=== PATIENT | female | born 1985 | race Caucasian/White ===

== ENCOUNTER 2016-10-01 12:16 | Observation (INO) | payer MEDICAID ==
[~2016-10-01] VITALS: Ht 149.9 cm; Wt 60.8 kg
[~2016-10-01 12:16] MED LIST: DICL75 PO
--- NOTE | 2016-10-01 13:45 | PD ---
HPI Chief Complaint Possible demise Date Seen: October 01, 2016 Time Seen: 13:00 (Wayne Zamudio MD R1) Travel History International Travel<30 Days: No Contact w/Intl Traveler<30Days: No Known Affected Area: No (Wayne Zamudio MD R1) History of Present Illness HPI Patient is a 31-year-old at 20 weeks and 1 day who presents with possible demise. Patient's estimated date of delivery is 02/17/17 based on first trimester ultrasound. Patient reports that she went to her 17 week appointment with Nina Deutsch and was told that everything was fine. Patient reports that she was in her normal state of health until last , which is the last day she felt movement. On that day, she felt like the contents of her abdomen shifted, felt like she was going to have a bowel movement, then felt stabbing pain in her cervix that lasted about 3 minutes. She went to 3-D ultrasound on 09/28, which was last Saturday, where they informed her that there was no heart rate or movement on ultrasound. She then called Nina Deutsch, who instructed her to go to the hospital. She then presented to [facility], where they noted the same lack of heart rate in movement on ultrasound. They referred her to an OB as an outpatient. When she finally was able to get in touch with an outpatient OB, they told her that they couldn't see her. Today, Nina Deutsch instructed her to present here to the [facility]. Patient denies any vaginal bleeding, leakage of fluid, contractions. She does endorse edema 2 days ago, feeling warm, chills, dizziness , increased feeling of pressure with urination. She has not taken her temperature. She denied any headache, vision changes, chest pain, shortness of breath, unusual abdominal pain. Para: 3 : 4 (Wayne Zamudio MD R1) History Past Medical History Narrative Medical Patient reports having osteogenesis imperfecta. She reports that she had her first fracture at 14 years old. Her daughter starting getting fractures at 2-3 years old. By working up the daughter, they discovered her osteogenesis imperfecta based on genetic testing. (Wayne Zamudio MD R1) Obstetric History Obstetric History Patient reports that her first was an uncomplicated full-term vaginal delivery. Her second delivery she had another full-term vaginal delivery, but had some anemia after delivery. For her youngest, she was induced a few weeks early around 37 weeks for cord around neck. (Wayne Zamudio MD R1) Past Surgical History Narrative Surgical Patient reports that she has had a few orthopedic closed reductions under anesthesia. Surgical History: No Previous Surgery (Wayne Zamudio MD R1) Family History Narrative Family History Patient reports that her mom has mental health problems and epilepsy. Dad is healthy. (Wayne Zamudio MD R1) Social History Alcohol Use: Yes (patient reports smoking 6-10 cigarettes per day.) Tobacco Use: No Substance Abuse: No (Wayne Zamudio MD R1) Allergies-Medications (Allergen,Severity, Reaction): Coded Allergies: Ceftriaxone (Verified Allergy, Intermediate, Confusion, 10/01/16) PATIENT STATES SHE FELT THAT SHE WAS HAVING A PANIC ATTACK Penicillin (Verified Allergy, Intermediate, Irritability/Anxiety, 10/01/16) reported AMS Home Meds Discontinued Scripts Diclofenac Sod (Diclofenac Sodium Dr)75 Mg Tab75 Mg PO BID PRN (PAIN SCALE 6 TO 10) #14 TAB Prov:Roque Martinez MD 02/22/13 Review of Systems General / Constitutional: Fever (possible, not measured, but patient felt warm) , Chills (all the time per patient) Eyes: No: Blurred Vision, Visual changes HENT: No: Headaches Cardiovascular: No: Chest Pain or Discomfort, Edema Respiratory: No: Short of Breath Gastrointestinal: No: Nausea, Vomiting, Diarrhea, Abdominal Pain Genitourinary: No: Dysuria Musculoskeletal: No: Edema Skin: No Rash (Wayne Zamudio MD R1) Physical Exam Afebrile vital signs stable and within normal limits. Narrative GENERAL: Well-nourished, well-developed patient. SKIN: Warm and dry. HEAD: Normocephalic and atraumatic. EYES: No scleral icterus. No injection or drainage. ENT: No nasal drainage noted. Mucous membranes pink. Airway patent. NECK: Supple, trachea midline. No JVD. CARDIOVASCULAR: Regular rate and rhythm without murmurs, gallops, or rubs. RESPIRATORY: Breath sounds equal bilaterally. No accessory muscle use. BREASTS: Bilateral exam showed no masses , no retractions, no nipple discharge. ABDOMEN/GI: Abdomen soft, non-tender, bowel sounds present, no rebound, no guarding Gravid to 20 weeks size FHT's: Unable to obtain EXTREMITIES: No cyanosis or edema. BACK: Nontender without obvious deformity. No CVA tenderness. NEUROLOGICAL: Awake and alert. Motor and sensory grossly within normal limits. Five out of 5 muscle strength in all muscle groups. Normal speech. (Wayne Zamudio MD R1) Data Data Vital Signs Reviewed: Yes Orders Rubella Immune Status (10/01/16 13:22) Hepatitis Profile (10/01/16 13:) Rapid Plasma Regin (Rpr) W Ttr (10/01/16 13:) Type And Screen (10/01/16 13:22) Complete Blood Count With Diff (10/01/16 13:) No Care Spec Serology (10/01/16:) Us Ob Pelvis >14 Wks Fetus (10/01/16 ) Abo/Rh Blood Type (10/01/16 13:27) Urinalysis - C+S If Indicated (10/01/16 13:) Ob/Psych Drug Screen, Urine (10/01/16 13:27) (Wayne Zamudio MD R1) MDM Plan Patient is a 31-year-old at 20 weeks and 1 day who presents with possible demise based on her last two ultrasound exams. 1. Possible demise Given her lack of records, will need to repeat basic labs looking for possible etiology of demise and will need to repeat OB ultrasound to confirm demise ABO/Rh blood type, UA, OB/psych drug screen, rubella status, hepatitis profile , RPR, type and screen, CBC, special serology OB ultrasound If there is a demise and retained products of conception, will admit and induce either with Cytotec or misoprostol or dilatation and evacuation /extraction Patient seen and examined with Dr. Telly Billingsley. Discussed with Dr. Todd. ( Wayne Zamudio MD R1) Collaborating MD Comments Patient with demise at 20 weeks gestation. Will admit for induction and cervical ripening. (Maru Todd MD) Wayne Zamudio MD R1 October 01, 2016 13:45 Maru Todd MD October 02, 2016 08:22
[2016-10-01 14:05] LABS: AUTOMATED NEUTROPHIL # 10.3 TH/MM3 (1.8-7.7); BASOPHIL # 0.1 TH/MM3 (0-0.2); BASOPHIL % 0.5 % (0.0-2.0); EOSINOPHIL # 0.1 TH/MM3 (0-0.4); EOSINOPHIL % 0.4 % (0.0-4.0); HEMATOCRIT 36.4 % (35.0-46.0); HEMO FLAGS DIFF FINAL; LYMPH % 14.8 % (9.0-44.0); MEAN CELL VOLUME 93.2 FL (80.0-100.0); MEAN CORPUSCULAR HEMOGLOBIN 30.7 PG (27.0-34.0); MEAN CORPUSCULAR HGB CONC 32.9 % (32.0-36.0); MONO % 8.2 % (0.0-8.0); NEUT % 76.1 % (16.0-70.0); PLATELET COUNT 248 TH/MM3 (150-450); RED BLOOD COUNT 3.91 MIL/MM3 (4.00-5.30); RED CELL DISTRIBUTION WIDTH 13.4 % (11.6-17.2); WHITE BLOOD COUNT 13.5 TH/MM3 (4.0-11.0)
[2016-10-01 14:14] LABS: AMPHETAMINE, URINE NEG (NEG); BARBITURATES, URINE NEG (NEG); COCAINE, URINE NEG (NEG)
[2016-10-01 14:46] LABS: RUBELLA IGG ANTIBODY 92.1 IU/mL (10.0-500.0); RUBELLA STATUS IMMUNE (IMMUNE)
[2016-10-01] MEDS ORDERED: MISOPROSTOL 200 MCG TAB VAGINAL ONE (15:00)
[2016-10-01 15:09] LABS: BACTERIA, URINE FEW /hpf; BLOOD, URINE NEG (NEG); COMMENT (UR) CULTURE INDICATED; CULTURE IF INDICATED CULTURE INDICATED; GLUCOSE,URINE NEG (NEG); KETONE, URINE NEG (NEG); MUCUS URINE FEW /lpf (OCC); NITRITE,URINE NEG (NEG); SQUAMOUS EPITHELIAL CELL URINE 14 /hpf (0-5); URINE COLOR YELLOW (YELLW/STRAW)
[2016-10-01] MEDS: LACTATED RINGER'S 1000 ML INJ 1,000 ML IV SCH (20:24)
[2016-10-01] MEDS ORDERED: ACETAMINOPHEN 325 MG TAB PO PRN (20:45)
[2016-10-01] MEDS ORDERED: ONDANSETRON HCL 4 MG/2 ML VIAL IV PUSH PRN (20:45)
[2016-10-01] MEDS ORDERED: ZOLPIDEM TARTRATE 10 MG TAB PO PRN (20:45)
[2016-10-02] MEDS ORDERED: MISOPROSTOL 200 MCG TAB VAGINAL ONE ×3 (02:00→14:00)
[2016-10-02] MEDS: LACTATED RINGER'S 1000 ML INJ 1,000 ML IV SCH ×3 (04:24→19:19)
--- NOTE | 2016-10-02 08:23 | PD.LABORPN ---
Subjective Subjective Patient is a 31-year-old at 20 weeks and 1 day who presents with demise. Dating based on first trimester US. care has been with Nina Deutsch. Pt with history of Osteogenesis imperfecta. Pt seen and examined this morning. AFVSS. Last dose of Cytotec was at 0300am. She endorses occasional lower abdominal cramping. She has no other acute concerns. complications Second trimester demise, first miscarriage Maternal history of Osteogenesis Imperfect History of post hemorrhage with prior (Jag Billingsley MD R2) Objective Objective Pt resting comfortably in bed Pelvic Exam: Cervix: Posterior Dilatation: 0 Membranes: Intact (Jag Billingsley MD R2) Assessment/Plan Assessment and Plan Patient is a 31-year-old at 20 weeks and 1 day who presents with demise. 1) Second trimester Intrauterine demise US showing gestational age of 16 weeks 3 days Pt has been given Cytotec 600mcg vaginally x2 No cervical change Will give Cytotec 800mcg vaginally now Continue to monitor for cervical change 2) Maternal History of Osteogenesis Imperfecta Normal appearance of bones on US, no evidence of fracture wdw Dr. Todd (Jag Billingsley MD R2) Collaborating MD Comments Agree with management and care (Maru Todd MD) Jag Billingsley MD R2 October 02, 2016 08:23 Maru Todd MD October 02, 2016 09:22
[2016-10-02 10:02] LABS: RAPID PLASMA REAGIN SCREEN NON-REACTIVE (NON-REACTVE)
--- NOTE | 2016-10-02 14:38 | PD.LABORPN ---
Subjective Subjective Patient is a 31-year-old at 20 weeks and 1 day who presents with demise. Dating based on first trimester US. care has been with Nina Deutsch. Pt with history of Osteogenesis imperfecta. She has no other acute concerns at this time. Patient given Cytotec intravaginally. Discussed risks and benefits. Patient consented to and tolerated insertion of medication well. (Wayne Zamudio MD R1 ) Objective Vital Signs Afebrile vital signs stable and within normal limits. Objective Pelvic Exam: Performed by Dr. Herrera Dilatation: 0cm, closed Effacement: Thick FHT's: None because status post demise (Wayne Zamudio MD R1) Assessment/Plan Problem List: (1) Second trimester (2) Osteogenesis imperfecta Assessment and Plan Patient is a 31-year-old at 20 weeks and 1 day who presents with demise. 1) Second trimester spontaneous Intrauterine demise US showing gestational age of 16 weeks 3 days Pt has been given Cytotec 600mcg vaginally x3 No cervical change Will give Cytotec 800mcg vaginally now Continue to monitor for cervical change 2) Maternal History of Osteogenesis Imperfecta Normal appearance of bones on US, no evidence of fracture sdw Dr. Herrera (Wayne Zamudio MD R1) Wayne Zamudio MD R1 October 02, 2016 14:38 Buddy Herrera MD October 02, 2016 14:50
[2016-10-02] MEDS ORDERED: MEASLES, MUMPS, RUBELLA VACCINE 0.5 ML VIAL SQ ONE (16:00)
[2016-10-02] MEDS ORDERED: DIPHTH/TETANUS/ACEL PERTUSSIS (BOOSTER) 0.5 ML VIAL/PFS IM ONE (16:00)
[2016-10-02] MEDS ORDERED: OXYTOCIN 30 UNITS-500ML PREMIX 500 ML ONE (18:20)
--- NOTE | 2016-10-02 18:29 | PD.OB.DELI ---
Delivery Date: October 02, 2016 Anesthesia: None Episiotomy: None Vaginal Delivery: Normal Nuchal Cord: None One Minute : 0 Five Minute : 0 Placenta: Spontaneous delivery, Intact Laceration: No lacerations Additional Information 20 weeks and 2 day demise. Delivered en-caule, with intact placenta. Hypercoiled cord. Buddy Herrera MD October 02, 2016 18:28
[2016-10-02] MEDS ORDERED: ACETAMINOPHEN 325 MG TAB PO PRN (18:30)
[2016-10-02] MEDS ORDERED: DOCUSATE SODIUM 50 MG/SENNA 8.6 MG TAB PO PRN (18:30)
[2016-10-02] MEDS ORDERED: IBUPROFEN 600 MG TAB PO PRN (18:30)
[2016-10-02] MEDS ORDERED: BENZOCAINE 20% TOPICAL SPRAY 60 ML CAN TOPICAL PRN (18:30)
[2016-10-02] MEDS ORDERED: ZOLPIDEM TARTRATE 5 MG TAB PO PRN (18:30)
[2016-10-02] MEDS ORDERED: ONDANSETRON ODT 4 MG TAB PO PRN (18:30)
[2016-10-02] MEDS ORDERED: oxyCODONE/ACETAMINOPHEN 5 MG/325 MG TAB PO PRN (18:30)
[2016-10-02] MEDS ORDERED: WITCH HAZEL 50%/GLYCERIN 12.5% 40 PAD JAR TOPICAL PRN (18:30)
[2016-10-02] MEDS ORDERED: ALUMINUM/MAGNESIUM/SIMETH 30 ML CUP PO PRN (18:30)
[2016-10-02 18:35] VITALS: BP 117/78; PULSE 71
[2016-10-02 18:46] VITALS: BP 114/57; PULSE 78
[2016-10-02 19:00] VITALS: BP 116/76; PULSE 66; RESP 18
[2016-10-02] MEDS ORDERED: OXYTOCIN 30 UNITS-500ML PREMIX 500 ML IV ONE (19:00)
[2016-10-02 19:15] VITALS: BP 108/72; PULSE 74
[2016-10-02 19:30] VITALS: BP 102/62; PULSE 68
[2016-10-02 19:33] VITALS: TEMP 98.2
[2016-10-02] MEDS ORDERED: SODIUM CHLORIDE 0.9% FLUSH 10 ML FLUSH IV FLUSH SCH (21:00)
[2016-10-03 00:28] VITALS: BP 89/48; PULSE 59
[2016-10-03 00:29] VITALS: RESP 18; TEMP 98.2
[2016-10-03 04:24] VITALS: TEMP 98.3
[2016-10-03] MEDS: LACTATED RINGER'S 1000 ML INJ 1,000 ML IV SCH (04:24)
[2016-10-03 06:06] VITALS: BP 84/41; PULSE 57
[2016-10-03 08:16] VITALS: BP 110/76; PULSE 76
[2016-10-03 08:17] VITALS: RESP 20; TEMP 98.8
--- NOTE | 2016-10-03 08:41 | HHI.OB ---
Subjective Post Day: 1 Remarks Patient is a 31-year-old delivered at 20 weeks and 2 days. Patient is day 1 after induction of labor for intrauterine demise and delivery of products of conception. Patient's pain is well-controlled. Patient reports eating and drinking without any nausea or vomiting. Patient reports minimal bleeding. Patient is walking without lower extremity pain or shortness of breath. Objective Vitals/I&O Vital Signs Date Time Temp Pulse Resp B/P Pulse Ox O2 Delivery O2 Flow Rate FiO2 10/03/16 08:17 98.8 20 10/03/16 08:16 76 110/76 10/03/16 06:06 57 84/41 10/03/16 04:24 98.3 10/03/16 00:29 98.2 18 10/03/16 00:28 59 89/48 10/02/16 19:33 98.2 10/02/16 19:30 68 102/62 10/02/16 19:15 74 108/72 10/02/16 19:00 66 116/76 10/02/16 19:00 18 10/02/16 18:46 78 114/57 10/02/16 18:35 71 117/78 Objective Remarks GENERAL: Well-nourished, well-developed patient. CARDIOVASCULAR: Regular rate and rhythm without murmurs, gallops, or rubs. RESPIRATORY: Breath sounds equal bilaterally. No accessory muscle use. ABDOMEN/GI: Abdomen soft, non-tender. Fundus: Firm, non-tender below umbilicus. GENITOURINARY: Light to moderate bleeding. EXTREMITIES: No cyanosis or edema, non-tender, without signs of DVT. Medications and IVs Current Medications Medications (Trade) Dose Ordered Sig/Pamella Route Start Time Stop Time Status Last Admin (Lr 1000 ml Inj) 1,000 ml @ 125 mls/hr Q8H IV 10/01/16 20:24 10/02/16 10:58 (fentaNYL INJ) 50 mcg Q1H PRN IV PUSH 10/01/16 20:30 (fentaNYL INJ) 100 mcg Q1H PRN IV PUSH 10/01/16 20:30 (NS Flush) 2 ml BID IV FLUSH 10/02/16 21:00 10/02/16 19:24 (Tylenol) 650 mg Q4H PRN PO 10/02/16 18:30 (Motrin) 600 mg Q6H PRN PO 10/02/16 18:30 (Percocet 5-325 Mg) 1 tab Q4H PRN PO 10/02/16 18:30 (Americaine 20% Top Spr) 1 spray Q4H PRN TOPICAL 10/02/16 18:30 (Tucks Pads) 1 applic QID PRN TOPICAL 10/02/16 18:30 (Sera-Colace) 2 tab Q12H PRN PO 10/02/16 18:30 (Ambien) 5 mg HS PRN PO 10/02/16 18:30 (Mag-Al Plus Susp Liq) 15 ml Q8H PRN PO 10/02/16 18:30 (Zofran Odt) 4 mg Q6H PRN PO 10/02/16 18:30 Assessment/Plan Problem List: (1) Second trimester (2) Osteogenesis imperfecta Assessment and Plan Patient is a 31-year-old at 20 weeks and 2 day who presented with demise. Patient is day 1 after induction of labor for intrauterine demise and delivery of products of conception en-caule. 1) Second trimester spontaneous Intrauterine demise Patient successfully delivered after 3 doses of Cytotec She denies any complaints. No signs or symptoms of complications. Likely discharge today 2) Maternal History of Osteogenesis Imperfecta Normal appearance of bones on US, no evidence of fracture dw Dr. Herrera Discharge Planning Likely discharge today. Wayne Zamudio MD R1 October 03, 2016 08:41
--- NOTE | 2016-10-03 08:54 | HHI.DCPOC ---
Discharge Care Plan Diagnosis: (1) IUFD at less than 20 weeks of gestation (2) Osteogenesis imperfecta (3) Second trimester Report Symptoms to Your Doctor -Temperature above 100.5 degrees -Redness, of vagina or excessive or foul smelling drainage -Unusual pain or calf pain -Increased vaginal bleeding -Painful or difficulty urinating -Feelings of extreme sadness or anxiety after 2 weeks Goals to Promote Your Health * To prevent worsening of your condition and complications, please monitor yourself for fever and report any fever to your doctor. * To maintain your health at the optimal level, please follow up with your doctor. Directions to Meet Your Goals Take your medications as prescribed Follow your dietary instruction Follow activity as directed Ensure plenty of rest for recovery Drink fluids for hydration Keep your appointments as scheduled Take your immunizations and boosters as scheduled If your symptoms worsen call your PCP, if no PCP go to Urgent Care Center or Emergency Room Smoking is Dangerous to Your Health. Avoid second hand smoke Call the 24-hour crisis hotline for domestic abuse at Wayne Zamudio MD R1 October 03, 2016 08:54
[2016-10-04 10:50] LABS: BATH SALTS (MDPV) UR NEG (NEG); ECSTASY (MDMA) UR NEG (NEG); GABAPENTIN UR NEG (NEG); HEROIN (6-ACETYLMORPHINE) UR NEG (NEG); K2 SPICE UR NEG (NEG); OBMETHADONE UR NEG (NEG); OXYCODONE (PERCODAN) NEG (NEG); PHENCYCLIDINE URINE NEG (NEG)
[2016-10-04 10:51] LABS: HYDROMORPHONE U NEG (NEG)
== END 2016-10-03 10:20 | disposition home or self-care (01) ==
LOC: HOBED 12:16 → H2EA 15:05
PROVIDERS: ADMIT Obstetrics & Gynecology Obstetrics; ATTEND Obstetrics & Gynecology Obstetrics
DX: O02.1 Missed abortion (principal); O26.892 Other specified pregnancy related conditions, second trimester; Q78.0 Osteogenesis imperfecta; Z3A.17 17 weeks gestation of pregnancy; Z88.1 Allergy status to other antibiotic agents; Z88.0 Allergy status to penicillin; O99.332 Smoking (tobacco) complicating pregnancy, second trimester; F17.210 Nicotine dependence, cigarettes, uncomplicated
CPT/HCPCS: 59855; 76805; 80074; 80307; 81001; 85025; 86592; 86703; 86762; 86850; 86900; 86901; 87086; 88300; 88305; 99285; G0378; G0481; J7120; J2590

== ENCOUNTER 2017-04-06 11:46 | Emergency (ER) | payer MEDICAID ==
[~2017-04-06] VITALS: Ht 149.9 cm; Wt 70.0 kg
[2017-04-06 11:47] VITALS: BP 126/84; PULSE 92; RESP 16; TEMP 98.3; O2SAT 100
[2017-04-06] MEDS ORDERED: SODIUM CHLOR 0.9% 1000 ML INJ 1,000 ML IV ONE (12:30)
[2017-04-06] MEDS ORDERED: SODIUM CHLORIDE 0.9% FLUSH 10 ML FLUSH IVF PRN (12:30)
[2017-04-06 13:04] LABS: AUTOMATED NEUTROPHIL # 7.7 TH/MM3 (1.8-7.7); BASOPHIL % 0.4 % (0.0-2.0); BLOOD, URINE NEG (NEG); COMMENT (UR) CULT NOT INDICATED; CULTURE IF INDICATED CULT NOT INDICATED; EOSINOPHIL # 0.1 TH/MM3 (0-0.4); EOSINOPHIL % 0.8 % (0.0-4.0); GLUCOSE,URINE NEG (NEG); HEMATOCRIT 36.3 % (35.0-46.0); HEMO FLAGS DIFF FINAL; KETONE, URINE 10 mg/dL (NEG); LYMPH % 17.1 % (9.0-44.0); LYMPHOCYTE # 1.8 TH/MM3 (1.0-4.8); MEAN CELL VOLUME 93.4 FL (80.0-100.0); MEAN CORPUSCULAR HEMOGLOBIN 31.3 PG (27.0-34.0); MEAN CORPUSCULAR HGB CONC 33.5 % (32.0-36.0); MONO % 10.8 % (0.0-8.0); MUCUS URINE FEW /lpf (OCC); NEUT % 70.9 % (16.0-70.0); NITRITE,URINE NEG (NEG); PLATELET COUNT 238 TH/MM3 (150-450); RED BLOOD COUNT 3.89 MIL/MM3 (4.00-5.30); RED CELL DISTRIBUTION WIDTH 13.2 % (11.6-17.2); SQUAMOUS EPITHELIAL CELL URINE 1 /hpf (0-5); URINE COLOR LIGHT-YELLOW (YELLW/STRAW); WHITE BLOOD COUNT 10.8 TH/MM3 (4.0-11.0)
[2017-04-06 13:15] LABS: ALT (GPT) 17 U/L (10-53); ANION GAP 9 MEQ/L (5-15); AST (GOT) 17 U/L (15-37); BICARBONATE 22.4 MEQ/L (21.0-32.0); BLOOD UREA NITROGEN 7 MG/DL (7-18); CHLORIDE 107 MEQ/L (98-107); GLOMERULAR FILTRATION RATE 130 ML/MIN (>89); POTASSIUM 3.4 MEQ/L (3.5-5.1); SODIUM (NA) 138 MEQ/L (136-145)
--- NOTE | 2017-04-06 13:25 | PD ---
HPI Chief Complaint: Related Problem Time Seen by Provider: 12:30 Travel History International Travel<30 days: No Contact w/Intl Traveler<30days: No Traveled to known affect area: No History of Present Illness HPI Patient is a 31-year-old female who presents to emergency room with complaints of lower abdominal cramping and pain. Patient reports that she is A1 L3 with last mental cycle around January 11, 2017. Patient reports that she thinks that she is about 12 weeks , she has gone to the FRONT OFFICE ATTENDANT's office , Nina Deutsch's office and has had lab work done. Patient reports that she was at work today, reports that she bent down to pick something up, reports pain and cramping to lower abdomen. Patient denies any vaginal discharge or vaginal bleeding this time. Reports that she has had 3 vaginal deliveries and normal deliveries in the past with one miscarriage. Patient denies any fever or chills, denies any nausea or vomiting, denies any constipation or diarrhea at this time. PFSH Past Medical History Anemia: Yes Anxiety: Yes Diminished Hearing: No Psychiatric: Yes Tetanus Vaccination: < 5 Years Influenza Vaccination: No ?: LMP: 01/11/17 : 4 Para: 3 Past Surgical History Tonsillectomy: Yes Social History Alcohol Use: Yes (rare) Tobacco Use: Yes (5 cigarrrettes per day) Substance Use: No Allergies-Medications (Allergen,Severity, Reaction): Coded Allergies: ceftriaxone (Verified Allergy, Intermediate, sob, 04/06/17) penicillin G (Verified Allergy, Intermediate, sob, 04/06/17) Reported Meds & Prescriptions Reported Meds & Active Scripts Active No Active Prescriptions or Reported Medications Review of Systems General / Constitutional: No: Fever Eyes: No: Visual changes HENT: No: Headaches Cardiovascular: No: Chest Pain or Discomfort Respiratory: No: Shortness of Breath Gastrointestinal: Positive: Abdominal Pain, No: Nausea, Vomiting, Constipation Genitourinary: No: Urgency, Frequency, Dysuria Musculoskeletal: No: Pain Skin: No Rash Neurologic: No: Weakness Psychiatric: No: Depression Endocrine: No: Polydipsia Hematologic/Lymphatic: No: Easy Bruising Physical Exam Narrative GENERAL: Mild distress SKIN: Focused skin assessment warm/dry. HEAD: Atraumatic. Normocephalic. EYES: Pupils equal and round. No scleral icterus. No injection or drainage. ENT: No nasal bleeding or discharge. Mucous membranes pink and moist. NECK: Trachea midline. No JVD. CARDIOVASCULAR: Regular rate and rhythm. No murmur appreciated. RESPIRATORY: No accessory muscle use. Clear to auscultation. Breath sounds equal bilaterally. GASTROINTESTINAL: Abdomen soft, mildly tender to lower abdomen, nondistended. Hepatic and splenic margins not palpable. MUSCULOSKELETAL: No obvious deformities. No clubbing. No cyanosis. No edema. NEUROLOGICAL: Awake and alert. No obvious cranial nerve deficits. Motor grossly within normal limits. Normal speech. PSYCHIATRIC: Appropriate mood and affect; insight and judgment normal. Data Data Last Documented VS Vital Signs Date Time Temp Pulse Resp B/P (MAP) Pulse Ox O2 Delivery O2 Flow Rate FiO2 04/06/17 12:40 83 16 04/06/17 11:47 98.3 126/84 (98) 100 Orders Orders Beta Hcg (Quant/Titer) (04/06/17 12:30) Complete Blood Count With Diff (04/06/17 12:30) Comprehensive Metabolic Panel (04/06/17 12:30) Type And Screen (04/06/17 12:30) Urinalysis - C+S If Indicated (04/06/17 12:30) Iv Access Insert/Monitor (04/06/17 12:30) Ecg Monitoring (04/06/17 12:30) Sodium Chloride 0.9% Flush (Ns Flush) (04/06/17 12:30) Sodium Chlor 0.9% 1000 Ml Inj (Ns 1000 M (04/06/17 12:30) Ed Urine Pregnancytest Poc (04/06/17 12:30) Us Pelvis (Ques Preg/Ectopic) (04/06/17 ) Labs Laboratory Tests Test 04/06/17 12:44 White Blood Count 10.8 TH/MM3 Red Blood Count 3.89 MIL/MM3 Hemoglobin 12.1 GM/DL Hematocrit 36.3 % Mean Corpuscular Volume 93.4 FL Mean Corpuscular Hemoglobin 31.3 PG Mean Corpuscular Hemoglobin Concent 33.5 % Red Cell Distribution Width 13.2 % Platelet Count 238 TH/MM3 Mean Platelet Volume 8.1 FL Neutrophils (%) (Auto) 70.9 % Lymphocytes (%) (Auto) 17.1 % Monocytes (%) (Auto) 10.8 % Eosinophils (%) (Auto) 0.8 % Basophils (%) (Auto) 0.4 % Neutrophils # (Auto) 7.7 TH/MM3 Lymphocytes # (Auto) 1.8 TH/MM3 Monocytes # (Auto) 1.2 TH/MM3 Eosinophils # (Auto) 0.1 TH/MM3 Basophils # (Auto) 0.0 TH/MM3 CBC Comment DIFF FINAL Differential Comment Urine Color LIGHT-YELLOW Urine Turbidity CLEAR Urine pH 5.0 Urine Specific [place] 1.011 Urine Protein NEG mg/dL Urine Glucose (UA) NEG mg/dL Urine Ketones 10 mg/dL Urine Occult Blood NEG Urine Nitrite NEG Urine Bilirubin NEG Urine Urobilinogen LESS THAN 2.0 MG/DL Urine Leukocyte Esterase NEG Urine Squamous Epithelial Cells 1 /hpf Urine Mucus FEW /lpf Microscopic Urinalysis Comment CULT NOT INDICATED Blood Urea Nitrogen 7 MG/DL Creatinine 0.55 MG/DL Random Glucose 77 MG/DL Total Protein 7.0 GM/DL Albumin 3.7 GM/DL Calcium Level 8.3 MG/DL Alkaline Phosphatase 40 U/L Aspartate Amino Transf (AST/SGOT) 17 U/L Alanine Aminotransferase (ALT/SGPT) 17 U/L Total Bilirubin 0.2 MG/DL Sodium Level 138 MEQ/L Potassium Level 3.4 MEQ/L Chloride Level 107 MEQ/L Carbon Dioxide Level 22.4 MEQ/L Anion Gap 9 MEQ/L Estimat Glomerular Filtration Rate 130 ML/MIN Human Chorionic Gonadotropin, Quant [id number] MIU/ML [facility] Medical Decision Making Medical Screen Exam Complete: Yes Emergency Medical Condition: Yes Medical Record Reviewed: Yes Interpretation(s) Vital Signs Date Time Temp Pulse Resp B/P (MAP) Pulse Ox O2 Delivery O2 Flow Rate FiO2 04/06/17 12:40 83 16 04/06/17 11:47 98.3 92 16 126/84 (98) 100 Differential Diagnosis Threatened miscarriage, round ligament pain, muscle strain Narrative Course During the course of the patients emergency department visit, the patients history, examination, and differential diagnosis were reviewed with the patient. The patient was placed on a electronic device monitor with oximetry and frequent blood pressure monitoring. The patient had a 20-gauge IV access obtained and blood work sent for analysis. The patient was initially provided IV fluids The patients laboratory studies were reviewed and remarkable for: Laboratory Tests Test 04/06/17 12:44 White Blood Count 10.8 TH/MM3 (4.0-11.0) Red Blood Count 3.89 MIL/MM3 (4.00-5.30) Hemoglobin 12.1 GM/DL (11.6-15.3) Hematocrit 36.3 % (35.0-46.0) Mean Corpuscular Volume 93.4 FL (80.0-100.0) Mean Corpuscular Hemoglobin 31.3 PG (27.0-34.0) Mean Corpuscular Hemoglobin Concent 33.5 % (32.0-36.0) Red Cell Distribution Width 13.2 % (11.6-17.2) Platelet Count 238 TH/MM3 (150-450) Mean Platelet Volume 8.1 FL (7.0-11.0) Neutrophils (%) (Auto) 70.9 % (16.0-70.0) Lymphocytes (%) (Auto) 17.1 % (9.0-44.0) Monocytes (%) (Auto) 10.8 % (0.0-8.0) Eosinophils (%) (Auto) 0.8 % (0.0-4.0) Basophils (%) (Auto) 0.4 % (0.0-2.0) Neutrophils # (Auto) 7.7 TH/MM3 (1.8-7.7) Lymphocytes # (Auto) 1.8 TH/MM3 (1.0-4.8) Monocytes # (Auto) 1.2 TH/MM3 (0-0.9) Eosinophils # (Auto) 0.1 TH/MM3 (0-0.4) Basophils # (Auto) 0.0 TH/MM3 (0-0.2) CBC Comment DIFF FINAL Differential Comment Urine Color LIGHT-YELLOW (YELLW/STRAW) Urine Turbidity CLEAR (CLEAR) Urine pH 5.0 (5.0-8.5) Urine Specific [place] 1.011 (1.002-1.035) Urine Protein NEG mg/dL (NEG-TRACE) Urine Glucose (UA) NEG mg/dL (NEG) Urine Ketones 10 mg/dL (NEG) Urine Occult Blood NEG (NEG) Urine Nitrite NEG (NEG) Urine Bilirubin NEG (NEG) Urine Urobilinogen LESS THAN 2.0 MG/DL (LESS Urine Leukocyte Esterase NEG (NEG) Urine Squamous Epithelial Cells 1 /hpf (0-5) Urine Mucus FEW /lpf (OCC) Microscopic Urinalysis Comment CULT NOT INDICATED Blood Urea Nitrogen 7 MG/DL (7-18) Creatinine 0.55 MG/DL (0.50-1.00) Random Glucose 77 MG/DL (74-106) Total Protein 7.0 GM/DL (6.4-8.2) Albumin 3.7 GM/DL (3.4-5.0) Calcium Level 8.3 MG/DL (8.5-10.1) Alkaline Phosphatase 40 U/L (45-117) Aspartate Amino Transf (AST/SGOT) 17 U/L (15-37) Alanine Aminotransferase (ALT/SGPT) 17 U/L (10-53) Total Bilirubin 0.2 MG/DL (0.2-1.0) Sodium Level 138 MEQ/L (136-145) Potassium Level 3.4 MEQ/L (3.5-5.1) Chloride Level 107 MEQ/L (98-107) Carbon Dioxide Level 22.4 MEQ/L (21.0-32.0) Anion Gap 9 MEQ/L (5-15) Estimat Glomerular Filtration Rate 130 ML/MIN (>89) Human Chorionic Gonadotropin, Quant [id number] MIU/ML (0-5) Radiology studies were reviewed and remarkable for: Last Impressions Pelvis Ultrasound 04/06/17 0000 Signed Impressions: Service Date/Time: Thursday, April 06, 2017 13:01 - CONCLUSION: 1. Single viable intrauterine of 11 weeks 3 days with heart rate 152 beats per minute. Andrae Vega MD Patient reevaluated, patient feeling much better at this time. Labwork was reviewed, ultrasound of the pelvis as reviewed. Patient with most likely abdominal muscle strain due to bending and lifting heavy object today at work. I reviewed all labs and all studies with patient in detail including all incidental findings. Patient does have a positive IUP at 11week and 3 days. Patient instructed to follow up with her FRONT OFFICE ATTENDANT. Discussed need for light duty , no lifting heavy objects, pelvic rest until seen and cleared by FRONT OFFICE ATTENDANT. She will return to the emergency room as needed. Diagnosis Primary Impression: Abdominal pain Additional Impressions: Threatened Muscle strain Patient Instructions: General Instructions Additional Instructions: Please provide patient with a copy of their lab work and studies at discharge* * Please follow up with your primary care doctor in 2-3 days Return to the ER if symptoms worsen or progress Return to the ER as needed Do not lift anything heavier than 10 pounds Pelvic rest until you're seen and cleared by your FRONT OFFICE ATTENDANT Scripts No Active Prescriptions or Reported Meds Disposition: 01 DISCHARGE HOME Condition: Stable Etelvina Khalli DO Apr 06, 2017 13:24
[2017-04-06 13:31] LABS: ALKALINE PHOSPHATASE 40 U/L (45-117); BETA HCG QUANT 101353 MIU/ML (0-5); TOTAL BILIRUBIN ADULT 0.2 MG/DL (0.2-1.0)
--- NOTE | 2017-04-06 14:00 | RADRPT ---
EXAM DATE/TIME: 04/06/2017 13:01 [facility] COMPARISON: No previous studies available for comparison. INDICATIONS : Ectopic. LAB(S): Beta-hC MEDICAL HISTORY : . Anemia. Anxiety. SURGICAL HISTORY : Tonsillectomy. ENCOUNTER: Initial ACUITY: 1 day PAIN SCORE: 3/10 LOCATION: Bilateral pelvis MEASUREMENTS: UTERUS: 14.3 x 8.6 x 6.5 cm ENDOMETRIAL STRIPE: >20 mm RIGHT OVARY: 2.5 x 1.5 x 1.6 cm LEFT OVARY: 3.4 x 2.2 x 2.2 cm FREE FLUID: No CROWN RUMP LENGTH: 4.7 cm = 11 WKS 3 DAYS FHR: 152 BPM FINDINGS: There is a viable intrauterine with gestational age 11 weeks 3 days by crown-rump length. N o free fluid. Ovaries unremarkable. heart rate 152 beats per minute. CONCLUSION: 1. Single viable intrauterine of 11 weeks 3 days with heart rate 152 beats per minute . Andrae Vega MD on April 06, 2017 at 13:56 Board Certified Radiologist. This report was verified electronically.
[2017-04-06] MEDS ORDERED: ACETAMINOPHEN 325 MG TAB PO ONE (14:15)
[2017-04-06] MEDS ORDERED: POTASSIUM CHLORIDE 10 MEQ CONTROLLED RELEASE TAB PO ONE (14:15)
[2017-04-06 14:53] VITALS: BP 132/76; TEMP 97.8
== END 2017-04-06 14:54 | disposition home or self-care (01) ==
LOC: NEPD 11:46
DX: O20.0 Threatened abortion (principal); S39.011A Strain of muscle, fascia and tendon of abdomen, initial encounter; O99.011 Anemia complicating pregnancy, first trimester; O99.341 Other mental disorders complicating pregnancy, first trimester; F41.9 Anxiety disorder, unspecified; X50.0XXA Overexertion from strenuous movement or load, initial encounter; Y99.0 Civilian activity done for income or pay; Z3A.11 11 weeks gestation of pregnancy
CPT/HCPCS: 76700; 80053; 81001; 84702; 84703; 85025; 86850; 86900; 86901; 96360; 99285; J7030

== ENCOUNTER 2017-10-22 21:06 | Inpatient (IN) | payer MEDICAID ==
[~2017-10-22] VITALS: Ht 149.9 cm; Wt 76.2 kg
--- NOTE | 2017-10-22 22:28 | HHI.HP ---
HPI Chief Complaint Decreased movement, concern over medical condition of osteogenesis imperfecta Date Seen: Oct 22, 2017 Time Seen: 22:15 Travel History International Travel<30 Days: No Contact w/Intl Traveler<30Days: No Known Affected Area: No History of Present Illness HPI Patient is 32-year-old white female A1 at 40 weeks and 2 days and an EDC of 10/20/17 she goes to the [facility] and sees Nina Deutsch and she has noted some decreased movement earlier today but now the baby is moving well. Her Main concern is that she has osteogenesis imperfecta and has had no high-risk evaluation referral and for maternal- medicine she is now overdue and very worried about her baby and how she is going to deliver, she delivered vaginally 3 times before and [facility] and there were no fractures at on babies but her daughter has severe osteogenesis and has had multiple fractures, her son is a very mild case of osteogenesis , her NST is reactive and she is not jenifer at this time Weeks Gestation: 40 Para: 3 : 5 Miscarriage: 1 History Past Medical History Narrative Medical Osteogenesis imperfecta , patient states she has had multiple fractures in her life both her legs have been fractured in the past she had a fracture in her arm and her leg 1 time just from walking Obstetric History Obstetric History 3 vaginal deliveries at least 2 of those children have osteogenesis imperfecta 1 of these children severe osteogenesis and has had multiple fractures, the other child is a milder case, . 1 early loss [at 20 weeks] Family History Narrative Family History Osteogenica imperfecta Social History Alcohol Use: No Tobacco Use: Yes Substance Abuse: No Allergies-Medications (Allergen,Severity, Reaction): Coded Allergies: ceftriaxone (Verified Allergy, Intermediate, sob, 04/06/17) penicillin G (Verified Allergy, Intermediate, sob, 04/06/17) Home Meds No Active Prescriptions or Reported Meds Review of Systems General / Constitutional: No: Fever, Weight Gain, Chills, Other Eyes: No: Diploplia, Blurred Vision, Visual changes, Pain, Photophobia HENT: No: Headaches, Vertigo, Lightheadedness Cardiovascular: No: Irregular Rhythm, Chest Pain or Discomfort, Palpitations, Tachycardia, Syncope, Varicosities, Edema, Cyanosis Respiratory: No: Cough, Short of Breath, Other Gastrointestinal: No: Nausea, Vomiting, Diarrhea Genitourinary: No: Decreased Urinary Output, Oliguria Musculoskeletal: No: Limited ROM, Weakness, Cramping, Edema, Pain Skin: No Rash, No Itching, No Dryness, No Lumps, No Change in Pigmentation, No Change in Nails, No Alopecia, No Lesions Neurologic: No: Weakness, Dizziness, Syncope, Focal Abnormalities, Coordination Problem, Headache, Slurred Speech, Seizures Psychiatric: No: Depression, Suicidal Ideations, Homicidal Ideation Endocrine: No: Heat Intolerance, Cold Intolerance, Polydipsia, Polyuria, Other Physical Exam Narrative GENERAL: Well-nourished, well-developed patient. SKIN: Warm and dry. HEAD: Normocephalic and atraumatic. EYES: No scleral icterus, sclera are blue. No injection or drainage. ENT: No nasal drainage noted. Mucous membranes pink. Airway patent. NECK: Supple, trachea midline. No JVD. CARDIOVASCULAR: Regular rate and rhythm without murmurs, gallops, or rubs. RESPIRATORY: Breath sounds equal bilaterally. No accessory muscle use. BREASTS: Bilateral exam showed no masses , no retractions, no nipple discharge. ABDOMEN/GI: Abdomen soft, non-tender, bowel sounds present, no rebound, no guarding Gravid to [-40] weeks size Fundal Height: [40-] GENITOURINARY: External Genitalia: intact and normal in appearance BUS glands: [-] Cervix: [post-] Dilatation: [2-3-] Effacement: [thick-] Station: [-3] Presentation: [vtx-] Membranes: [intact ] Uterine Contractions: [none-] FHT's: Category: [1-] Baseline: [-133] Reactive: [-R] Variability: [mod-] Decels: [0-] EXTREMITIES: No cyanosis or edema. BACK: Nontender without obvious deformity. No CVA tenderness. NEUROLOGICAL: Awake and alert. Motor and sensory grossly within normal limits. Five out of 5 muscle strength in all muscle groups. Normal speech. Caprini VTE Risk Assessment Caprini VTE Risk Assessment: No/Low Risk (score <= 1) Caprini Risk Assessment Model Point Value = 1 Point Value = 2 Point Value = 3 Point Value = 5 Age 41-60 Minor surgery BMI > 25 kg/m2 Swollen legs Varicose veins or History of unexplained or recurrent spontaneous Oral contraceptives or hormone replacement Sepsis (< 1 month) Serious lung disease, including pneumonia (< 1 month) Abnormal pulmonary function Acute myocardial infarction Congestive heart failure (< 1 month) History of inflammatory bowel disease Medical patient at bed rest Age 61-74 Arthroscopic surgery Major open surgery (> 45 min) Laparoscopic surgery (> 45 min) Malignancy Confined to bed (> 72 hours) Immobilizing plaster cast Central venous access Age >= 75 History of VTE Family history of VTE Factor V Leiden Prothrombin [id number] Lupus anticoagulant Anticardiolipin antibodies Elevated serum homocysteine Heparin-induced thrombocytopenia Other congenital or acquired thrombophilia Stroke (< 1 month) Elective arthroplasty Hip, pelvis, or leg fracture Acute spinal cord injury (< 1 month) Prophylaxis Regimen Total Risk Factor Score Risk Level Prophylaxis Regimen 0-1 Low Early ambulation 2 Moderate Order ONE of the following: *Sequential Compression Device (SCD) *Heparin 5000 units SQ BID 3-4 Higher Order ONE of the following medications: *Heparin 5000 units SQ TID *Enoxaparin/Lovenox 40 mg SQ daily (WT < 150 kg, CrCl > 30 mL/min) *Enoxaparin/Lovenox 30 mg SQ daily (WT < 150 kg, CrCl > 10-29 mL/min) *Enoxaparin/Lovenox 30 mg SQ BID (WT < 150 kg, CrCl > 30 mL/min) AND/OR *Sequential Compression Device (SCD) 5 or more Highest Order ONE of the following medications: *Heparin 5000 units SQ TID (Preferred with Epidurals) *Enoxaparin/Lovenox 40 mg SQ daily (WT < 150 kg, CrCl > 30 mL/min) *Enoxaparin/Lovenox 30 mg SQ daily (WT < 150 kg, CrCl > 10-29 mL/min) *Enoxaparin/Lovenox 30 mg SQ BID (WT < 150 kg, CrCl > 30 mL/min) AND *Sequential Compression Device (SCD) Assessment/Plan Assessment and Plan Impression -40 week intrauterine , multiparous, with history of osteogenesis imperfecta and with offspring with osteogenesis imperfecta all delivered vaginally Plan-admit observation tonight-plan for her to see maternal medicine tomorrow as an inpatient consult for evaluation of her medical condition her offspring's medical condition and the plan for delivery Jaxson Antony II, MD Oct 22, 2017 22:28
[2017-10-22] MEDS ORDERED: ONDANSETRON ODT 4 MG TAB PO PRN (22:30)
[2017-10-22] MEDS ORDERED: SODIUM CHLORIDE 0.9% FLUSH 10 ML FLUSH IV FLUSH PRN (22:30)
[2017-10-22] MEDS ORDERED: ALUMINUM/MAGNESIUM/SIMETH 30 ML CUP PO PRN (22:30)
[2017-10-22] MEDS ORDERED: ZOLPIDEM TARTRATE 5 MG TAB PO PRN (22:30)
[2017-10-22 22:52] VITALS: RESP 18; TEMP 97.9
[2017-10-22 22:53] VITALS: BP 114/69; PULSE 79
[2017-10-22 23:21] LABS: AUTOMATED NEUTROPHIL # 11.3 TH/MM3 (1.8-7.7); BASOPHIL # 0.1 TH/MM3 (0-0.2); BASOPHIL % 0.4 % (0.0-2.0); EOSINOPHIL # 0.2 TH/MM3 (0-0.4); EOSINOPHIL % 1.1 % (0.0-4.0); HEMATOCRIT 31.7 % (35.0-46.0); HEMOGLOBIN 10.7 GM/DL (11.6-15.3); MEAN CELL VOLUME 91.2 FL (80.0-100.0); MEAN CORPUSCULAR HEMOGLOBIN 30.9 PG (27.0-34.0); MEAN CORPUSCULAR HGB CONC 33.9 % (32.0-36.0); MEAN PLATELET VOLUME 8.1 FL (7.0-11.0); MONO % 11.3 % (0.0-8.0); MONOCYTE # 1.7 TH/MM3 (0-0.9); NEUT % 74.2 % (16.0-70.0); PLATELET COUNT 272 TH/MM3 (150-450); RED BLOOD COUNT 3.47 MIL/MM3 (4.00-5.30); RED CELL DISTRIBUTION WIDTH 12.7 % (11.6-17.2); WHITE BLOOD COUNT 15.3 TH/MM3 (4.0-11.0)
[2017-10-22 23:33] LABS: BACTERIA, URINE RARE /hpf; BILIRUBIN, URINE NEG (NEG); BLOOD, URINE NEG (NEG); CALCIUM OXALATE CRYSTALS,URINE FEW /hpf; GLUCOSE,URINE NEG (NEG); KETONE, URINE NEG (NEG); MUCUS URINE FEW /lpf (OCC); NITRITE,URINE NEG (NEG); PH, URINE 6.5 (5.0-8.5); SQUAMOUS EPITHELIAL CELL URINE 9 /hpf (0-5); URINE COLOR YELLOW (YELLW/STRAW); URINE LEUKOCYTE ESTERASE LARGE (NEG)
[2017-10-22 23:37] LABS: BICARBONATE 20.4 MEQ/L (21.0-32.0); CALCIUM 8.2 MG/DL (8.5-10.1); CREATININE 0.63 MG/DL (0.50-1.00)
[2017-10-23] VITALS (14 sets, daily range): BP systolic 96–122; BP diastolic 52–74; PULSE 69–79; RESP 15–18; TEMP 97.6–98.7; O2SAT 100
[2017-10-23 00:50] LABS: BANDS 17 % (0-6); BASOPHILS 1 % (0-2); LYMPHOCYTES 8 % (9-44); METAMYELOCYTES 1 % (0-1); MONOCYTES 11 % (0-8); MYELOCYTES 1 % (0-0); NEUTROPHIL # MANUAL DIFF 12.1 TH/MM3 (1.8-7.7); POLYS (SEG NEUTROPHILS) 60 % (16-70)
[2017-10-23 00:51] LABS: TOXIC GRANULATION 1+ (NORMAL)
--- NOTE | 2017-10-23 08:28 | PD.OB.ANTE ---
Subjective Interval History Patient is 32-year-old white female A1 at 40 weeks and 3 days with a history of osteogenesis imperfecta that was admitted for observation overnight. NST was reassuring overnight with no decelerations. Patient denying any contractions, vaginal bleeding or gush of fluid. No decrease in movement. Objective Lab & Micro Results Test 10/22/17 22:00 10/22/17 22:55 10/22/17 22:58 Urine Opiates Screen NEG Urine Barbiturates Screen NEG Urine Amphetamines Screen NEG Urine Benzodiazepines Screen NEG Urine Cocaine Screen NEG Urine Cannabinoids Screen NEG White Blood Count 15.3 TH/MM3 Red Blood Count 3.47 MIL/MM3 Hemoglobin 10.7 GM/DL Hematocrit 31.7 % Mean Corpuscular Volume 91.2 FL Mean Corpuscular Hemoglobin 30.9 PG Mean Corpuscular Hemoglobin Concent 33.9 % Red Cell Distribution Width 12.7 % Platelet Count 272 TH/MM3 Mean Platelet Volume 8.1 FL Neutrophils (%) (Auto) 74.2 % Lymphocytes (%) (Auto) 13.0 % Monocytes (%) (Auto) 11.3 % Eosinophils (%) (Auto) 1.1 % Basophils (%) (Auto) 0.4 % Neutrophils # (Auto) 11.3 TH/MM3 Lymphocytes # (Auto) 2.0 TH/MM3 Monocytes # (Auto) 1.7 TH/MM3 Eosinophils # (Auto) 0.2 TH/MM3 Basophils # (Auto) 0.1 TH/MM3 CBC Comment AUTO DIFF Differential Total Cells Counted 100 Neutrophils % (Manual) 60 % Band Neutrophils % 17 % Lymphocytes % 8 % Monocytes % 11 % Eosinophils % 1 % Basophils % 1 % Neutrophils # (Manual) 12.1 TH/MM3 Metamyelocytes 1 % Myelocytes 1 % Differential Comment FINAL DIFF MANUAL Toxic Granulation 1+ Platelet Estimate NORMAL Platelet Morphology Comment NORMAL Red Cell Morphology Comment NORMAL Urine Color YELLOW Urine Turbidity HAZY Urine pH 6.5 Urine Specific [place] 1.030 Urine Protein 30 mg/dL Urine Glucose (UA) NEG mg/dL Urine Ketones NEG mg/dL Urine Occult Blood NEG Urine Nitrite NEG Urine Bilirubin NEG Urine Urobilinogen 2.0 MG/DL Urine Leukocyte Esterase LARGE Urine RBC 1 /hpf Urine WBC 35 /hpf Urine Squamous Epithelial Cells 9 /hpf Urine Calcium Oxalate Crystals FEW /hpf Urine Bacteria RARE /hpf Urine Mucus FEW /lpf Microscopic Urinalysis Comment CULTURE INDICATED Blood Urea Nitrogen 9 MG/DL Creatinine 0.63 MG/DL Random Glucose 99 MG/DL Calcium Level 8.2 MG/DL Sodium Level 139 MEQ/L Potassium Level 3.7 MEQ/L Chloride Level 107 MEQ/L Carbon Dioxide Level 20.4 MEQ/L Anion Gap 12 MEQ/L Estimat Glomerular Filtration Rate 110 ML/MIN Date/Time Source Procedure Growth Status 10/22/17 22:55 Urine Clean Catch Urine Culture Pending Received Physical Exam GENERAL: Well-nourished, well-developed patient. CARDIOVASCULAR: Regular rate and rhythm without murmurs, gallops, or rubs. RESPIRATORY: Breath sounds equal bilaterally. No accessory muscle use. ABDOMEN/GI: Abdomen soft, non-tender. Fundus: Consistent with 40 weeks gestation GENITOURINARY: External Genitalia: intact and normal in appearance Uterine Contractions: No contractions noted on the monitor FHT's: Category: 1 Baseline: 130 Reactive: Yes Variability: Moderate Decels: None EXTREMITIES: No cyanosis or edema, non-tender, without signs of DVT. Assessment and Plan Assessment and Plan Impression - 40 week intrauterine , multiparous, with history of osteogenesis imperfecta and with offspring with osteogenesis imperfecta all delivered vaginally and was admitted for observation overnight. Reassuring NST overnight with no contractions on the monitor or change in status. Was 2-3 cm dilated, thick and -3 station on admission. Plan for her to see maternal medicine today as an inpatient consult for evaluation of her medical condition her offspring's medical condition and the plan for delivery. Jeremy Jj MD R1 Oct 23, 2017 08:28
[2017-10-23] MEDS: MULTIVIT/MIN/PREN/FOL AC/IRON PRENATAL TAB PO SCH (09:00)
[2017-10-23] MEDS: FERROUS SULFATE 325 MG (65 MG ELEMENTAL IRON) TAB PO SCH ×2 (09:00→21:13)
[2017-10-23] MEDS: DOCUSATE SODIUM 100 MG CAP PO SCH (09:00)
[2017-10-23] MEDS ORDERED: SODIUM CHLORIDE 0.9% FLUSH 10 ML FLUSH IV FLUSH SCH ×2 (09:00→21:00)
[2017-10-23] MEDS: SULFAMETHOXAZOLE-TRIMETHOPRIM DS 800-160 MG TAB PO SCH ×2 (09:00→21:13)
[2017-10-23] MEDS ORDERED: DEXAMETHASONE SOD PHOS 4 MG/ML VIAL IV ONE (12:00)
[2017-10-23] MEDS ORDERED: PHENYLEPH/NS 1000 MCG/10 ML SYR IV ONE (12:00)
[2017-10-23] MEDS ORDERED: LACTATED RINGER'S 1000 ML INJ 1,000 ML IV ONE ×2 (12:00→13:00)
[2017-10-23] MEDS ORDERED: KETOROLAC TROMETHAMINE 30 MG/ML (IVP) VIAL IV PUSH ONE (12:00)
[2017-10-23] MEDS ORDERED: ONDANSETRON HCL 4 MG/2 ML VIAL IV ONE (12:00)
[2017-10-23] MEDS ORDERED: ePHEDrine/NS 25 MG/5 ML SYRINGE IV ONE (12:00)
[2017-10-23] MEDS ORDERED: OXYTOCIN 10 UNIT/ML AMP IV ONE (12:00)
[2017-10-23] MEDS ORDERED: VANCOMYCIN INJ 1,000 MG in SODIUM CHLOR 0.9% 250 ML INJ 250 ML IV ONE (13:00)
[2017-10-23] MEDS ORDERED: MORPHINE SULFATE PF 5 MG/10 ML VIAL ONE (13:18)
[2017-10-23] MEDS ORDERED: ACETAMINOPHEN 1000 MG/100 ML 100 ML IV ONE (13:18)
[2017-10-23] MEDS ORDERED: CLINDAMYCIN PHOS 600 MG/4 ML VIAL ONE (13:19)
[2017-10-23] MEDS ORDERED: EPINEPHrine HCL (1:1000) 1 MG/ML VIAL ONE (13:25)
[2017-10-23] MEDS ORDERED: LACTATED RINGER'S 1000 ML INJ 1,000 ML IV SCH ×2 (13:30→20:09)
[2017-10-23] MEDS ORDERED: CLINDAMYCIN 600 MG/NS PREMIX 50 ML IV SCH (13:45)
[2017-10-23] MEDS ORDERED: CITRIC ACID-SODIUM CITRATE LIQ 30 ML UDC PO SCH (14:15)
--- NOTE | 2017-10-23 15:14 | PD.OB.ANTE ---
Subjective Diagnosis: (1) 40 weeks gestation of (2) Osteogenesis imperfecta (3) IUFD at less than 20 weeks of gestation (4) Second trimester Interval History pt. at 40 3/7 weeks w/ osteogenesis imperfecta. all children affected. pt have mfm consult recommend cd 2/2 poor minerilization of bones on u/s. d/ w pt. condition. options given and pt. desire cd. Objective Lab & Micro Results Test 10/22/17 22:00 10/22/17 22:55 10/22/17 22:58 Urine Opiates Screen NEG Urine Barbiturates Screen NEG Urine Amphetamines Screen NEG Urine Benzodiazepines Screen NEG Urine Cocaine Screen NEG Urine Cannabinoids Screen NEG White Blood Count 15.3 TH/MM3 Red Blood Count 3.47 MIL/MM3 Hemoglobin 10.7 GM/DL Hematocrit 31.7 % Mean Corpuscular Volume 91.2 FL Mean Corpuscular Hemoglobin 30.9 PG Mean Corpuscular Hemoglobin Concent 33.9 % Red Cell Distribution Width 12.7 % Platelet Count 272 TH/MM3 Mean Platelet Volume 8.1 FL Neutrophils (%) (Auto) 74.2 % Lymphocytes (%) (Auto) 13.0 % Monocytes (%) (Auto) 11.3 % Eosinophils (%) (Auto) 1.1 % Basophils (%) (Auto) 0.4 % Neutrophils # (Auto) 11.3 TH/MM3 Lymphocytes # (Auto) 2.0 TH/MM3 Monocytes # (Auto) 1.7 TH/MM3 Eosinophils # (Auto) 0.2 TH/MM3 Basophils # (Auto) 0.1 TH/MM3 CBC Comment AUTO DIFF Differential Total Cells Counted 100 Neutrophils % (Manual) 60 % Band Neutrophils % 17 % Lymphocytes % 8 % Monocytes % 11 % Eosinophils % 1 % Basophils % 1 % Neutrophils # (Manual) 12.1 TH/MM3 Metamyelocytes 1 % Myelocytes 1 % Differential Comment FINAL DIFF MANUAL Toxic Granulation 1+ Platelet Estimate NORMAL Platelet Morphology Comment NORMAL Red Cell Morphology Comment NORMAL Urine Color YELLOW Urine Turbidity HAZY Urine pH 6.5 Urine Specific [place] 1.030 Urine Protein 30 mg/dL Urine Glucose (UA) NEG mg/dL Urine Ketones NEG mg/dL Urine Occult Blood NEG Urine Nitrite NEG Urine Bilirubin NEG Urine Urobilinogen 2.0 MG/DL Urine Leukocyte Esterase LARGE Urine RBC 1 /hpf Urine WBC 35 /hpf Urine Squamous Epithelial Cells 9 /hpf Urine Calcium Oxalate Crystals FEW /hpf Urine Bacteria RARE /hpf Urine Mucus FEW /lpf Microscopic Urinalysis Comment CULTURE INDICATED Blood Urea Nitrogen 9 MG/DL Creatinine 0.63 MG/DL Random Glucose 99 MG/DL Calcium Level 8.2 MG/DL Sodium Level 139 MEQ/L Potassium Level 3.7 MEQ/L Chloride Level 107 MEQ/L Carbon Dioxide Level 20.4 MEQ/L Anion Gap 12 MEQ/L Estimat Glomerular Filtration Rate 110 ML/MIN Date/Time Source Procedure Growth Status 10/22/17 22:55 Urine Clean Catch Urine Culture Pending Received Physical Exam GENERAL: Well-nourished, well-developed patient. CARDIOVASCULAR: Regular rate and rhythm without murmurs, gallops, or rubs. RESPIRATORY: Breath sounds equal bilaterally. No accessory muscle use. ABDOMEN/GI: Abdomen soft, non-tender. Fundus: [-] GENITOURINARY: External Genitalia: intact and normal in appearance Cervix: [-] Dilatation: [-] Effacement: [-] Station: [-] Presentation: [-] Membranes: [-] Uterine Contractions: [-] FHT's: Category: [-] Baseline: [-] Reactive: [-] Variability: [-] Decels: [-] EXTREMITIES: No cyanosis or edema, non-tender, without signs of DVT. Assessment and Plan Assessment and Plan cd d/w pt. risks/benefits and alternatives d/w pt. all ? answered. pt. sign consent w/o coercion. Skyler Kumar Jr., MD Oct 23, 2017 15:14
[2017-10-23] MEDS ORDERED: ONDANSETRON ODT 4 MG TAB PO PRN (15:15)
[2017-10-23] MEDS ORDERED: SODIUM CHLORIDE 0.9% FLUSH 10 ML FLUSH IV FLUSH PRN (15:15)
[2017-10-23] MEDS ORDERED: DOCUSATE SODIUM 50 MG/SENNA 8.6 MG TAB PO PRN (15:15)
[2017-10-23] MEDS ORDERED: SIMETHICONE 80 MG CHEWABLE TAB PO PRN (15:15)
[2017-10-23] MEDS ORDERED: KETOROLAC TROMETHAMINE 60 MG/2 ML (IM) VIAL IM PRN (15:15)
[2017-10-23] MEDS ORDERED: OXYTOCIN 30 UNITS-500ML PREMIX 500 ML IV ONE (15:15)
--- NOTE | 2017-10-23 15:17 | PD.OB.DELI ---
Procedure Note Section Procedure Pre Op Diagnosis: (1) Osteogenesis imperfecta (2) 40 weeks gestation of Post Op Diagnosis: (1) Osteogenesis imperfecta (2) 40 weeks gestation of Performed by Skyler Kumar Procedure: Primary Low Transverse Sec Indication for delivery: Maternal medical problems Previous condition: None Informed consent obtained: For procedure Confirmed correct: Patient, Time-out taken Anesthesia: Spinal Medication prior to procedure: As documented in eMAR Monitoring during procedure: Blood pressure monitoring, monitoring coordinator, Pulse oximetry Urinary catheter: Inserted using sterile technique Sterile preparation: With 2% chlorexidine (Hibiclens) Position: Supine with wedge to left side Operative Features Skin Incision: Transverse Uterine Incision: Low transverse w/knife / blunt ext Membranes Ruptured: Artificially Presentation: Occiput anterior Delivery date: Oct 23, 2017 Delivery time: 14:11 Delivery of infant: Uneventful Infant: Male One Minute : 6 Five Minute : 8 Weight: 3495 gms Status of infant: Viable Placenta delivered: Intact Medications: Antibiotics, Oxytocin Estimated blood loss: 1000cc Procedure tolerated: Well Maternal Condition: Stable Condition: Stable Procedure in detail see dictated operative report. Skyler Kumar Jr., MD Oct 23, 2017 15:17
[2017-10-23] MEDS ORDERED: diphenhydrAMINE HCL 50 MG/ML VIAL ONE (15:31)
--- NOTE | 2017-10-23 16:15 | MP ---
cc: Skyler Garsia MD DATE OF OPERATION: 10/23/2017 PREOPERATIVE DIAGNOSES: Intrauterine at 40-3/7 weeks, history of osteogenesis imperfecta. POSTOPERATIVE DIAGNOSES: Intrauterine at 40-3/7 weeks, history of osteogenesis imperfecta. PROCEDURE PERFORMED: Primary low transverse delivery via Pfannenstiel skin incision. SURGEON: Skyler Kumra Jr, MD INSIDE BARREL POLISHER: Staff. ESTIMATED BLOOD LOSS: 1000 mL. URINE OUTPUT: Clear urine throughout the procedure. ANESTHESIA: Spinal anesthesia with Duramorph. COMPLICATIONS: None. FINDINGS: A viable male in cephalic presentation with scores of 6 at 1 minute and 8 at 5 minutes. Normal uterus, tubes and ovaries noted at the time of the procedure. INDICATION FOR PROCEDURE: This is a 32-year-old now G5, P4-0-1-4, who presented to labor and delivery after being sent from [facility] secondary to her history of osteogenesis imperfecta. The patient with the 3 children that are affected. The patient had maternal medicine consultation and based on the consultation and further discussion with the patient, decision was made to have primary delivery. DESCRIPTION OF PROCEDURE: The patient was taken to the operating room with IV fluids running. She was identified as Genevieve Aguirre. She was prepped and draped in the usual sterile fashion with the dorsal supine position with leftward tilt. A Pfannenstiel skin incision was performed and carried down to the underlying layer of fascia with the Bovie. The fascia was incised in the midline and extended laterally. Margarita clamps were used to grasp the superior aspect of the fascial incision. The underlying rectus muscles were dissected sharply without difficulty. The rectus muscles were noted to have areas of bleeding. Two gymygs-tc-savcus were placed on the left and right aspects on the muscle. Excellent hemostasis were noted. The muscles were in the midline. The parietal peritoneum was identified and entered bluntly. This incision was extended superiorly and inferiorly with good visualization of the bladder. The bladder blade was then inserted. Lower uterine segment was incised without difficulty and extended bluntly. The 's head was then brought without difficulty to the uterine incision and delivered without much pressure. Rest of the was then delivered without difficulty or trauma. The cord was doubly clamped and cut. Cord bloods were obtained. The was handed to the waiting resuscitation team. Placenta was delivered. Uterus was then exteriorized and cleared of all clots and debris. Uterine incision was closed with a #1 Vicryl in a running fashion. Several areas of bleeding were noted and multiple ykkwmo-lw-mijkwg were placed. A second #1 Vicryl was used to perform an imbricating layer and again areas of bleeding were noted. These were made hemostatic with [id number]. The uterine incision was noted to be hemostatic. Marcelo was placed and the bladder flap was reapproximated with a 2-0 plain gut suture in a running fashion. The uterus was returned to the abdominal cavity. Copious amounts of irrigation were used. Pericolic gutters were cleared of all clots and debris. Again, the uterine incision was noted to be hemostatic at the level of the bladder flap. The parietal peritoneum was then reapproximated with a 2-0 plain gut suture in a running fashion. The subfascial tissues were noted to be hemostatic. The rectus fascia was closed with an 0 Vicryl suture in a running fashion. The subcuticular tissues were noted to be hemostatic. Camper's fascia was reapproximated with a 2-0 plain gut suture in a running fashion. The skin was closed with neida. Sponge, lap and needle counts were correct x 2. The patient received 600 mg of clindamycin prior to the procedure and transferred to PACU in stable condition. MD JULIA Irizarry Jr/ANDREA , 03:22 PM , 03:45 PM
[2017-10-23] MEDS ORDERED: EPIDURAL-DIPHENHYDRAMINE HCL 50 MG/ML VIAL IV PUSH PRN (16:30)
[2017-10-23] MEDS ORDERED: EPIDURAL-DIPHENHYDRAMINE HCL 50 MG CAP PO PRN (16:30)
[2017-10-23] MEDS ORDERED: EPIDURAL-DO NOT ADMINISTER ANTICOAGULANTS PRN (16:30)
[2017-10-23] MEDS ORDERED: EPIDURAL-NO SYSTEMIC NARCOTICS PRN (16:30)
[2017-10-23] MEDS ORDERED: EPIDURAL-NALOXONE HCL 0.4 MG/ML AMP IV PUSH PRN (16:30)
[2017-10-23] MEDS ORDERED: OXYTOCIN 30 UNITS-500ML PREMIX 500 ML IV PRN (20:15)
[2017-10-24] MEDS: IBUPROFEN 600 MG TAB PO PRN ×3 (03:45→17:35)
[2017-10-24] MEDS: oxyCODONE/ACETAMINOPHEN 5 MG/325 MG TAB PO PRN ×2 (03:45→21:07)
[2017-10-24 04:10] VITALS: BP 119/78; PULSE 81; RESP 18; TEMP 98.2
[2017-10-24 05:57] LABS: AUTOMATED NEUTROPHIL # 13.6 TH/MM3 (1.8-7.7); BASOPHIL % 0.1 % (0.0-2.0); EOSINOPHIL # 0.1 TH/MM3 (0-0.4); EOSINOPHIL % 0.3 % (0.0-4.0); HEMATOCRIT 23.1 % (35.0-46.0); HEMOGLOBIN 7.8 GM/DL (11.6-15.3); LYMPH % 11.5 % (9.0-44.0); LYMPHOCYTE # 2.1 TH/MM3 (1.0-4.8); MEAN CELL VOLUME 90.9 FL (80.0-100.0); MEAN CORPUSCULAR HEMOGLOBIN 30.6 PG (27.0-34.0); MEAN CORPUSCULAR HGB CONC 33.7 % (32.0-36.0); MEAN PLATELET VOLUME 7.9 FL (7.0-11.0); MONO % 13.1 % (0.0-8.0); MONOCYTE # 2.4 TH/MM3 (0-0.9); PLATELET COUNT 220 TH/MM3 (150-450); RED BLOOD COUNT 2.54 MIL/MM3 (4.00-5.30); RED CELL DISTRIBUTION WIDTH 12.7 % (11.6-17.2); WHITE BLOOD COUNT 18.2 TH/MM3 (4.0-11.0)
--- NOTE | 2017-10-24 07:26 | HHI.OB ---
Subjective Post Operative Day: 1 Remarks Postoperative day # 1. AFVSS overnight. Pain well-controlled. Incision clean, dry, and intact, not draining. Lochia less than a period. Denies dysuria. No breast tenderness. She is feeding the baby via breast. Appetite good. No nausea or vomiting. Positive flatus. No bowel movement. Ambulating well. Denies fever, chills, cough, shortness of breath, chest pain, and calf pain. Otherwise, she is doing well this morning and has no other complaints. Objective Vitals/I&O Vital Signs Date Time Temp Pulse Resp B/P (MAP) Pulse Ox O2 Delivery O2 Flow Rate FiO2 10/24/17 04:10 98.2 10/24/17 04:10 81 18 119/78 (92) 10/23/17 23:29 98.1 69 18 118/72 (87) 10/23/17 20:00 98.7 72 18 122/72 (89) 10/23/17 16:01 69 16 105/64 (78) 100 10/23/17 16:01 97.6 10/23/17 15:44 71 104/64 (77) 100 10/23/17 15:22 18 100 10/23/17 15:22 73 10/23/17 15:21 111/67 (82) 10/23/17 15:14 97.8 79 17 108/62 (77) 100 10/23/17 12:23 76 117/74 (88) 10/23/17 12:00 98.1 10/23/17 09:00 18 10/23/17 08:08 75 109/70 (83) 10/23/17 08:00 98.0 Result Diagram: 10/24/17 0522 10/22/17 2252 Objective Remarks GENERAL: Well-nourished, well-developed patient. CARDIOVASCULAR: Regular rate and rhythm without murmurs, gallops, or rubs. RESPIRATORY: Breath sounds equal bilaterally. No accessory muscle use. ABDOMEN/GI: Abdomen soft, non-tender, bowel sounds present. Incision: Clean, dry and intact. Berto in place Fundus: Firm, non-tender at umbilicus. GENITOURINARY: Light to moderate bleeding. EXTREMITIES: No cyanosis or edema, non-tender, without signs of DVT. Medications and IVs Current Medications Medications (Trade) Dose Ordered Sig/Pamella Route Start Time Stop Time Status Last Admin (Tylenol) 650 mg Q4H PRN PO 10/22/17 22:30 (Stuartnatal Plus 3 ) 1 tab DAILY PO 10/23/17 09:00 (Colace) 100 mg DAILY PO 10/23/17 09:00 (Mag-Al Plus Susp Liq) 30 ml QID PRN PO 10/22/17 22:30 (Ambien) 5 mg HS PRN PO 10/22/17 22:30 (Zofran Odt) 4 mg Q6H PRN PO 10/22/17 22:30 (Ferrous Sulfate) 325 mg BID PO 10/23/17 09:00 10/23/17 21:13 (NS Flush) 2 ml BID IV FLUSH 10/23/17 09:00 (NS Flush) 2 ml UNSCH PRN IV FLUSH 10/22/17 22:30 (Bactrim Ds 800-160 Mg) 1 tab Q12HR PO 10/23/17 09:00 10/23/17 21:13 Lactated Ringer's 1,000 ml @ 150 mls/hr Q6H40M IV 10/23/17 13:30 (Bicitra Liq) 30 ml WATCH GUARD GATE PO 10/23/17 14:15 10/27/17 14:14 10/23/17 13:23 Clindamycin/ Sodium Chloride 50 ml @ 100 mls/hr WATCH GUARD GATE IV 10/23/17 13:45 10/26/17 13:44 Lactated Ringer's 1,000 ml @ 100 mls/hr Q10H IV 10/23/17 20:09 10/24/17 16:08 Oxytocin 500 ml @ 100 mls/hr UNSCH X1 PRN IV 10/23/17 20:15 10/24/17 20:14 (NS Flush) 2 ml BID IV FLUSH 10/23/17 21:00 (NS Flush) 2 ml UNSCH PRN IV FLUSH 10/23/17 15:15 (Mylicon Chew) 80 mg QID PRN PO 10/23/17 15:15 (Motrin) 600 mg Q6H PRN PO 10/23/17 15:15 10/24/17 03:45 (Toradol Inj) 30 mg Q6H PRN IM 10/23/17 15:15 10/24/17 15:14 (Percocet 5-325 Mg) 1 tab Q4H PRN PO 10/23/17 15:15 10/24/17 03:45 (Percocet 5-325 Mg) 2 tab Q4H PRN PO 10/23/17 15:15 (Sera-Colace) 2 tab Q12H PRN PO 10/23/17 15:15 (M-M-R Ii Inj) 0.5 ml ONCE ONCE SQ 10/24/17 16:00 10/24/17 16:01 (Boostrix Inj) 0.5 ml ONCE ONCE IM 10/24/17 16:00 10/24/17 16:01 (Zofran Odt) 4 mg Q6H PRN PO 10/23/17 15:15 ([facility]) NO SYSTEMIC NARCOTICS TO BE GIVEN FO... UNSCH PRN .XX 10/23/17 16:30 10/24/17 16:29 (Narcan Inj) 0.4 mg UNSCH PRN IV PUSH 10/23/17 16:30 10/24/17 16:29 (Benadryl Inj) 25 mg Q6H PRN IV PUSH 10/23/17 16:30 10/24/17 16:29 (Benadryl) 50 mg Q6H PRN PO 10/23/17 16:30 10/24/17 16:29 ([facility]) ALL NURSING DEPARTMENTS UNSCH PRN .XX 10/23/17 16:30 10/24/17 16:29 Assessment/Plan Problem List: (1) 40 weeks gestation of ICD Codes: Z3A.40 - 40 weeks gestation of (2) Osteogenesis imperfecta ICD Codes: Q78.0 - Osteogenesis imperfecta Status: Acute (3) IUFD at less than 20 weeks of gestation ICD Codes: O02.1 - Missed Status: Acute (4) Second trimester ICD Codes: Z33.2 - Encounter for elective termination of Status: Acute Assessment and Plan 32 y/o female who is POD#1 s/p CS due to concern for low bone density of baby in the setting of maternal osteogenesis imperfecta -Continue routine care -Percocet and Motrin PRN pain -Pericolase PRN for constipation -Encouraged OOB. Advised pelvic rest for 6 wks -Will need a follow-up appointment within 1 week for incision check and staple removal - pt to report to the L&D because she had a medication aid -Re: ctrl - might have vasectomy or she would have tubal ligation Discussed with Betsy Mcfadden MD R2 Oct 24, 2017 07:26
[2017-10-24 08:21] LABS: BANDS 4 % (0-6); CORRECTED NUCLEATED RBC 1 /100 WBC (0-0); LYMPHOCYTES 9 % (9-44); MONOCYTES 9 % (0-8); MYELOCYTES 1 % (0-0); NEUTROPHIL # MANUAL DIFF 14.7 TH/MM3 (1.8-7.7); NUCLEATED RED BLOOD CELL 1 (0-0); POLYS (SEG NEUTROPHILS) 76 % (16-70)
[2017-10-24] MEDS: MULTIVIT/MIN/PREN/FOL AC/IRON PRENATAL TAB PO SCH (09:42)
[2017-10-24] MEDS: DOCUSATE SODIUM 100 MG CAP PO SCH (09:42)
[2017-10-24] MEDS: SULFAMETHOXAZOLE-TRIMETHOPRIM DS 800-160 MG TAB PO SCH ×2 (09:42→21:04)
[2017-10-24] MEDS: FERROUS SULFATE 325 MG (65 MG ELEMENTAL IRON) TAB PO SCH ×2 (09:42→21:04)
[2017-10-24] MEDS: ACETAMINOPHEN 325 MG TAB PO PRN ×2 (13:28→17:35)
[2017-10-24] MEDS ORDERED: MEASLES, MUMPS, RUBELLA VACCINE 0.5 ML VIAL SQ ONE (16:00)
[2017-10-24] MEDS ORDERED: DIPHTH/TETANUS/ACEL PERTUSSIS (BOOSTER) 0.5 ML VIAL/PFS IM ONE (16:00)
[2017-10-24 20:00] VITALS: BP 123/79; PULSE 73; RESP 18; TEMP 98.4
[2017-10-25] MEDS: IBUPROFEN 600 MG TAB PO PRN ×3 (01:08→14:17)
[2017-10-25] MEDS: oxyCODONE/ACETAMINOPHEN 5 MG/325 MG TAB PO PRN ×3 (01:08→14:17)
[2017-10-25 08:10] VITALS: BP 105/64; PULSE 72; RESP 20; TEMP 98.2
--- NOTE | 2017-10-25 08:28 | HHI.OB ---
Subjective Post Operative Day: 2 Remarks Postoperative day # 2. AFVSS overnight. Pain well-controlled. Incision clean, dry, and intact, not draining. Lochia like a period. Denies dysuria. No breast tenderness. She is feeding the baby via breast. Appetite good. No nausea or vomiting. Positive flatus. No bowel movement yet. Ambulating well. Denies fever , chills, cough, shortness of breath, chest pain, and calf pain. Otherwise, she is doing well this morning and has no other complaints. She would like to go home today. Objective Vitals/I&O Vital Signs Date Time Temp Pulse Resp B/P (MAP) Pulse Ox O2 Delivery O2 Flow Rate FiO2 10/24/17 20:00 123/79 (94) 10/24/17 20:00 98.4 73 18 Result Diagram: 10/24/1722 10/22/17 2258 Objective Remarks GENERAL: Well-nourished, well-developed patient. CARDIOVASCULAR: Regular rate and rhythm without murmurs, gallops, or rubs. RESPIRATORY: Breath sounds equal bilaterally. No accessory muscle use. ABDOMEN/GI: Abdomen soft, non-tender, bowel sounds present. Incision: Clean, dry and intact. Berto in place Fundus: Firm, non-tender at umbilicus. GENITOURINARY: Light to moderate bleeding. EXTREMITIES: No cyanosis or edema, non-tender, without signs of DVT. Medications and IVs Current Medications Medications (Trade) Dose Ordered Sig/Pamella Route Start Time Stop Time Status Last Admin (Tylenol) 650 mg Q4H PRN PO 10/22/17 22:30 10/24/17 17:35 (Stuartnatal Plus 3 ) 1 tab DAILY PO 10/23/17 09:00 10/24/17 09:42 (Colace) 100 mg DAILY PO 10/23/17 09:00 10/24/17 09:42 (Mag-Al Plus Susp Liq) 30 ml QID PRN PO 10/22/17 22:30 (Ambien) 5 mg HS PRN PO 10/22/17 22:30 (Zofran Odt) 4 mg Q6H PRN PO 10/22/17 22:30 (Ferrous Sulfate) 325 mg BID PO 10/23/17 09:00 10/24/17 21:04 (NS Flush) 2 ml BID IV FLUSH 10/23/17 09:00 (NS Flush) 2 ml UNSCH PRN IV FLUSH 10/22/17 22:30 (Bactrim Ds 800-160 Mg) 1 tab Q12HR PO 10/23/17 09:00 10/24/17 21:04 Lactated Ringer's 1,000 ml @ 150 mls/hr Q6H40M IV 10/23/17 13:30 (Bicitra Liq) 30 ml CREDIT REVIEW OFFICER PO 10/23/17 14:15 10/27/17 14:14 10/23/17 13:23 Clindamycin/ Sodium Chloride 50 ml @ 100 mls/hr CREDIT REVIEW OFFICER IV 10/23/17 13:45 10/26/17 13:44 (NS Flush) 2 ml BID IV FLUSH 10/23/17 21:00 (NS Flush) 2 ml UNSCH PRN IV FLUSH 10/23/17 15:15 (Mylicon Chew) 80 mg QID PRN PO 10/23/17 15:15 (Motrin) 600 mg Q6H PRN PO 10/23/17 15:15 10/25/17 01:08 (Percocet 5-325 Mg) 1 tab Q4H PRN PO 10/23/17 15:15 10/24/17 03:45 (Percocet 5-325 Mg) 2 tab Q4H PRN PO 10/23/17 15:15 10/25/17 01:08 (Sera-Colace) 2 tab Q12H PRN PO 10/23/17 15:15 10/24/17 21:04 (Zofran Odt) 4 mg Q6H PRN PO 10/23/17 15:15 Assessment/Plan Problem List: (1) 40 weeks gestation of ICD Codes: Z3A.40 - 40 weeks gestation of (2) Osteogenesis imperfecta ICD Codes: Q78.0 - Osteogenesis imperfecta Status: Acute (3) IUFD at less than 20 weeks of gestation ICD Codes: O02.1 - Missed Status: Acute (4) Second trimester ICD Codes: Z33.2 - Encounter for elective termination of Status: Acute Assessment and Plan 32 y/o female who is POD#2 s/p CS due to concern for low bone density of baby in the setting of maternal osteogenesis imperfecta -Continue routine care -Percocet and Motrin PRN pain -Pericolase PRN for constipation -Encouraged OOB. Advised pelvic rest for 6 wks -Will need a follow-up appointment within 1 week for incision check and staple removal - pt to report to the L&D because she had a rating examiner -Re: ctrl - might have vasectomy or she would have tubal ligation -H/H yesterday was 7.8/23.1 - will recheck this morning Discussed with Dr. Soto Discharge Planning Possible discharge home today Betsy Winters MD R2 Oct 25, 2017 08:28
[2017-10-25] MEDS: FERROUS SULFATE 325 MG (65 MG ELEMENTAL IRON) TAB PO SCH (08:31)
[2017-10-25] MEDS: DOCUSATE SODIUM 100 MG CAP PO SCH (08:31)
[2017-10-25] MEDS: SULFAMETHOXAZOLE-TRIMETHOPRIM DS 800-160 MG TAB PO SCH (08:31)
[2017-10-25] MEDS: MULTIVIT/MIN/PREN/FOL AC/IRON PRENATAL TAB PO SCH (08:32)
[2017-10-25 09:28] LABS: AUTOMATED NEUTROPHIL # 11.3 TH/MM3 (1.8-7.7); BASOPHIL % 0.3 % (0.0-2.0); EOSINOPHIL # 0.1 TH/MM3 (0-0.4); EOSINOPHIL % 0.8 % (0.0-4.0); HEMATOCRIT 25.4 % (35.0-46.0); HEMOGLOBIN 8.6 GM/DL (11.6-15.3); LYMPH % 14.4 % (9.0-44.0); LYMPHOCYTE # 2.2 TH/MM3 (1.0-4.8); MEAN CELL VOLUME 92.3 FL (80.0-100.0); MEAN CORPUSCULAR HEMOGLOBIN 31.2 PG (27.0-34.0); MEAN CORPUSCULAR HGB CONC 33.8 % (32.0-36.0); MEAN PLATELET VOLUME 7.5 FL (7.0-11.0); MONO % 11.8 % (0.0-8.0); MONOCYTE # 1.8 TH/MM3 (0-0.9); NEUT % 72.7 % (16.0-70.0); PLATELET COUNT 232 TH/MM3 (150-450); RED BLOOD COUNT 2.75 MIL/MM3 (4.00-5.30); RED CELL DISTRIBUTION WIDTH 13.1 % (11.6-17.2); WHITE BLOOD COUNT 15.4 TH/MM3 (4.0-11.0)
[2017-10-25 10:14] LABS: BANDS 1 % (0-6); BASOPHILS 1 % (0-2); LYMPHOCYTES 15 % (9-44); METAMYELOCYTES 2 % (0-1); MONOCYTES 6 % (0-8); MYELOCYTES 3 % (0-0); POLYS (SEG NEUTROPHILS) 72 % (16-70)
[2017-10-25] MEDS ORDERED: FERR325T20 PO (10:39)
[2017-10-25] MEDS ORDERED: IBUP1TAB7 PO (10:39)
[2017-10-25] MEDS ORDERED: PERI PO (10:39)
[2017-10-25] MEDS ORDERED: ACET325T15 PO (10:39)
[2017-10-25] MEDS ORDERED: OXYC1TAB63 PO (10:39)
--- NOTE | 2017-10-25 10:40 | HHI.DCPOC ---
Discharge Care Plan Diagnosis: (1) delivery delivered (2) Osteogenesis imperfecta Report Symptoms to Your Doctor -Temperature above 100.5 degrees -Redness, of incision or excessive or foul smelling drainage -Unusual pain or calf pain -Increased vaginal bleeding -Painful or difficulty urinating -Feelings of extreme sadness or anxiety after 2 weeks Goals to Promote Your Health * To prevent worsening of your condition and complications * To maintain your health at the optimal level Directions to Meet Your Goals Take your medications as prescribed Follow your dietary instruction Follow activity as directed Ensure plenty of rest for recovery Drink fluids for hydration Keep your appointments as scheduled Take your immunizations and boosters as scheduled If your symptoms worsen call your PCP, if no PCP go to Urgent Care Center or Emergency Room Smoking is Dangerous to Your Health. Avoid second hand smoke Call the 24-hour crisis hotline for domestic abuse at Jeremy Jj MD R1 Oct 25, 2017 10:40
== END 2017-10-25 14:42 | disposition home or self-care (01) | DRG 765 ==
LOC: HOBED 21:06 → H2EA 22:37 → H1EA 10-23 16:22
PROVIDERS: ADMIT Obstetrics & Gynecology Maternal & Fetal Medicine; ATTEND Obstetrics & Gynecology Maternal & Fetal Medicine
PROC: 10D00Z1 Extraction of Products of Conception, Low, Open Approach (ICD-10-PCS; principal; 2017-10-23)
DX: O48.0 Post-term pregnancy (principal); Q78.0 Osteogenesis imperfecta; O75.89 Other specified complications of labor and delivery; O99.334 Smoking (tobacco) complicating childbirth; Z37.0 Single live birth; Z3A.40 40 weeks gestation of pregnancy; Z88.0 Allergy status to penicillin; Z88.1 Allergy status to other antibiotic agents
CPT/HCPCS: 59025; 76816; 76819; 80048; 80307; 81001; 85007; 85027; 86850; 86900; 86901; 87086; G0481; J0131; J0171; J1100; J1200; J1885; J2274; J2370; J2405; J2590; J3010; J7120

== ENCOUNTER 2017-11-01 09:33 | Emergency (ER) | payer MEDICAID ==
[~2017-11-01] VITALS: Ht 152.4 cm; Wt 73.0 kg
[~2017-11-01 09:33] MED LIST changes: +ACET325T15 PO; -DICL75 PO; +FERR325T20 PO; +IBUP1TAB7 PO; +OXYC1TAB63 PO; +PERI PO
[2017-11-01 09:35] VITALS: BP 145/84; PULSE 83; RESP 16; TEMP 98.3; O2SAT 99
[2017-11-01 12:18] LABS: BACTERIA, URINE RARE /hpf; BILIRUBIN, URINE NEG (NEG); BLOOD, URINE MOD (NEG); GLUCOSE,URINE NEG (NEG); KETONE, URINE NEG (NEG); MUCUS URINE FEW /lpf (OCC); NITRITE,URINE NEG (NEG); SQUAMOUS EPITHELIAL CELL URINE <1 /hpf (0-5); URINE COLOR Straw (YELLW/STRAW); URINE LEUKOCYTE ESTERASE NEG (NEG)
== END 2017-11-01 23:00 | disposition home or self-care (01) ==
LOC: NEPD 09:33
DX: Z48.02 Encounter for removal of sutures (principal)
CPT/HCPCS: 81001